=== PATIENT | male | born 1985 | race Caucasian/White ===

== ENCOUNTER 2019-02-20 16:36 | Emergency (ER) | payer BC ==
[2019-02-20 17:07] VITALS: BP 117/72; PULSE 73; RESP 18; TEMP 98.4
[2019-02-20] MEDS ORDERED: RABIES VACCINE (PCEC) 2.5 UNIT KIT IM ONE (17:15)
[2019-02-20] MEDS ORDERED: RABIES IMMUNE GLOB 300 UNIT/ML 5 ML VIAL IM ONE (17:15)
[2019-02-20] MEDS ORDERED: RABIES IMMUNE GLOB 300 UNIT/ML 1 ML VIAL IM ONE (17:30)
--- NOTE | 2019-02-20 18:05 | ED ---
General Adult HPI - General Chief complaint: Recheck/Abnormal Lab/Rx Stated complaint: Rabies exposure Time Seen by Provider: 02/20/19 16:45 Source: patient, RN notes reviewed, old records reviewed Mode of arrival: ambulatory Limitations: no limitations - History of Present Illness Initial comments: 33-year-old male patient presents to ED for rabies vaccine. Patient had a bat which was found in his home acting irregular, tested positive for rabies. This was one week ago. Patient did not have any known physical exposure to bat. Does not know of any bite wounds. Denies any complaints at this time. Systemic: Pt denies fatigue, fever/chills, rash. Pt denies weakness, night sweats, weight loss. Neuro: Pt denies headache, visual disturbances, syncope or pre-syncope. HEENT: Pt denies ocular discharge or irritation, otalgia, rhinorrhea, pharyngitis or notable lymphadenopathy. Cardiopulmonary: Pt denies chest pain, SOB, heart palpitations, dyspnea on exertion. Abdominal/GI: Pt denies abdominal pain, n/v/d. : Pt denies dysuria, burning w/ urination, frequency/urgency. Denies new onset urinary or bowel incontinence. MSK: Pt denies myalgia, loss of strength or function in extremities. Neuro: Pt denies new onset weakness, paresthesias. - Related Data Allergies Allergy/AdvReac Type Severity Reaction Status Date / Time No Known Allergies Allergy Verified 02/20/19 17:07 Review of Systems ROS Statement: Those systems with pertinent positive or pertinent negative responses have been documented in the HPI. ROS Other: All systems not noted in ROS Statement are negative. Past Medical History Additional Past Medical History / Comment(s): seasonal allergies, History of Any Multi-Drug Resistant Organisms: None Reported Past Surgical History: No Surgical Hx Reported Past Psychological History: Depression Smoking Status: Current every day smoker Past Alcohol Use History: Occasional Past Drug Use History: None Reported General Exam - General Exam Comments Initial Comments: Constitutional: NAD, AOX3, Pt has pleasant affect. HEENT: NC/AT, trachea midline, neck supple, no lymphadenopathy. Posterior pharynx non erythematous, without exudates. External ears appear normal, without discharge. Mucous membranes moist. Eyes PERRLA, EOM intact. There is no scleral icterus. No pallor noted. Cardiopulmonary: RRR, no murmurs, rubs or gallops, no JVD noted. Lungs CTAB in anterior and posterior santoro. No peripheral edema. Abdominal exam: Abdomen soft and non-distended. Abdomen non-tender to palpation in all 4 quadrants. Bowel sounds active in LLQ. No hepatosplenomegaly. No ecchymosis Neuro: CN II-XII grossly intact. No nuchal rigidity. No raccon eyes, no ren sign, no hemotympanum. No cervical spinal tenderness. MSK: No posterior calf tenderness bilaterally, homans sign negative bilaterally. Posterior tibialis and radial pulse +2 bilaterally. Sensation intact in upper and lower extremities. Full active ROM in upper and lower extremities, 5/5 stregnth. Limitations: no limitations Course Vital Signs 02/20/19 17:04 Temperature 98.4 F Pulse Rate 73 Respiratory 18 Rate Blood Pressure 117/72 O2 Sat by Pulse 98 Oximetry Medical Decision Making - Medical Decision Making 33-year-old male patient presents to ED for rabies vaccine. Patient had a bat which was found in his home acting irregular, tested positive for rabies. Patient did not have any known physical exposure to bat. Does not know of any bite wounds. Denies any complaints at this time. Pt VSS, afebrile. Physical exam displayed no acute pathology. Patient administered rabies vaccine, immunoglobulin. Will discharge with outpatient follow-up to have series of rabies vaccines completed. Case discussed with Dr. Wood. Disposition Clinical Impression: Encounter for prophylactic rabies immune globin, Rabies, need for prophylactic vaccination against Disposition: HOME SELF-CARE Condition: Stable Instructions (If sedation given, give patient instructions): Rabies Vaccine (By injection), Rabies Immune Globulin (By injection), Rabies Vaccine (ED), Rabies (ED) Additional Instructions: Patient to adhere to previously discussed treatment plan and will take medication(s) as directed. Patient to follow up with PCP in 1-2 days. Return to ER if condition worsens in anyway. Code to [facility] on days 3, 7, 14 and after administration of initial vaccines for completion of rabies vaccine. 02/23/19 02/27/19 03/06/19 Is patient prescribed a controlled substance at d/c from ED?: No Referrals: Kaylee De Jesus MD [Primary Care Provider] - 1-2 days
== END 2019-02-20 18:20 | disposition home or self-care (01) ==
LOC: EC 16:36
DX: Z29.14 Encounter for prophylactic rabies immune globulin (principal); Z20.3 Contact with and (suspected) exposure to rabies; F17.200 Nicotine dependence, unspecified, uncomplicated
CPT/HCPCS: 90375; 90471; 90675; 96372; 99284

== ENCOUNTER 2019-09-15 19:17 | Emergency (ER) | payer BC ==
[2019-09-15] MEDS ORDERED: LORazepam 2 MG/ML INJ IV STA (19:30)
--- NOTE | 2019-09-15 19:31 | ED ---
General Adult HPI - General Stated complaint: anxiety Time Seen by Provider: 09/15/19 19:20 Source: RN notes reviewed, old records reviewed - History of Present Illness Initial comments: 33-year-old male patient with no pertinent past HISTORY presents to ED for evaluation of chest pain and anxiety. Patient reports that he does not normally smoke marijuana. States that he smokes marijuana approximately 45 minutes ago and began experiencing chest pain, severe anxiety. Reports that it feels similar to anxiety and panic attacks states that in the past. States that the pain and discomfort is generalized in his anterior chest wall. Since that upon evaluation is improved from before and is mild at this point. Reports previously been on medications for anxiety but no longer. Denies using any other drugs including cocaine. Was administered aspirin by EMS. Systemic: Pt denies fatigue, fever/chills, rash. Pt denies weakness, night sweats, weight loss. Neuro: Pt denies headache, visual disturbances, syncope or pre-syncope. HEENT: Pt denies ocular discharge or irritation, otalgia, rhinorrhea, pharyngitis or notable lymphadenopathy. Cardiopulmonary: Pt denies SOB, heart palpitations, dyspnea on exertion. Abdominal/GI: Pt denies abdominal pain, n/v/d. : Pt denies dysuria, burning w/ urination, frequency/urgency. Denies new onset urinary or bowel incontinence. MSK: Pt denies myalgia, loss of strength or function in extremities. Neuro: Pt denies new onset weakness, paresthesias. - Related Data Home Medications Medication Instructions Recorded Confirmed No Known Home Medications 02/20/19 09/15/19 Allergies Allergy/AdvReac Type Severity Reaction Status Date / Time No Known Allergies Allergy Verified 09/15/19 20:55 Review of Systems ROS Statement: Those systems with pertinent positive or pertinent negative responses have been documented in the HPI. ROS Other: All systems not noted in ROS Statement are negative. Past Medical History Additional Past Medical History / Comment(s): seasonal allergies, History of Any Multi-Drug Resistant Organisms: None Reported Past Surgical History: No Surgical Hx Reported Smoking Status: Current every day smoker General Exam - General Exam Comments Initial Comments: Constitutional: NAD, AOX3, Pt has pleasant affect. HEENT: NC/AT, trachea midline, neck supple, no lymphadenopathy. Posterior pharynx non erythematous, without exudates. External ears appear normal, without discharge. Mucous membranes moist. Eyes PERRLA, EOM intact. There is no scleral icterus. No pallor noted. Cardiopulmonary: RRR, no murmurs, rubs or gallops, no JVD noted. Lungs CTAB in anterior and posterior santoro. No peripheral edema. Abdominal exam: Abdomen soft and non-distended. Abdomen non-tender to palpation in all 4 quadrants. Bowel sounds active in LLQ. No hepatosplenomegaly. No ecchymosis Neuro: CN II-XII grossly intact. No nuchal rigidity. No raccon eyes, no ren sign, no hemotympanum. No cervical spinal tenderness. MSK: No posterior calf tenderness bilaterally, homans sign negative bilaterally. Posterior tibialis and radial pulse +2 bilaterally. Sensation intact in upper and lower extremities. Full active ROM in upper and lower extremities, 5/5 stregnth. Course Vital Signs 09/15/19 09/15/19 19:24 20:49 Temperature 97.9 F Pulse Rate 111 H 106 H Respiratory 20 20 Rate Blood Pressure 137/89 116/85 O2 Sat by Pulse 100 97 Oximetry Medical Decision Making - Medical Decision Making 33-year-old male patient with no pertinent past HISTORY presents to ED for evaluation of chest pain and anxiety. Patient reports that he does not normally smoke marijuana. States that he smokes marijuana approximately 45 minutes ago and began experiencing chest pain, severe anxiety. Reports that it feels similar to anxiety and panic attacks states that in the past. States that the pain and discomfort is generalized in his anterior chest wall. Since that upon evaluation is improved from before and is mild at this point. Reports previously been on medications for anxiety but no longer. Denies using any other drugs including cocaine. Was administered aspirin by EMS. Patient will then displayed very mild tachycardia. Physical examthe pathology. Patient was administered anxiolytic. Chest x-ray revealed no acute process. EKG is nonischemic. Upon reevaluation patient is asymptomatic states he is feeling much improved. Patient will be discharged to follow-up with PCP and will return to ED if condition worsens. Patient advised to refrain from future marijuana or recreational drug use. Case discussed with Dr. Ruelas. - Lab Data Lab Results 09/15/19 Range/Units 20:38 Urine Opiates Screen Not Detected (NotDetected) Ur Oxycodone Screen Not Detected (NotDetected) Urine Methadone Screen Not Detected (NotDetected) Ur Propoxyphene Screen Not Detected (NotDetected) Ur Barbiturates Screen Not Detected (NotDetected) U Tricyclic Antidepress Not Detected (NotDetected) Ur Phencyclidine Scrn Not Detected (NotDetected) Ur Amphetamines Screen Not Detected (NotDetected) U Methamphetamines Scrn Not Detected (NotDetected) U Benzodiazepines Scrn Not Detected (NotDetected) Urine Cocaine Screen Not Detected (NotDetected) U Marijuana (THC) Screen Not Detected (NotDetected) - EKG Data -: EKG Interpreted by Me (and Dr. Ruelas) EKG Comments: Ventricular rate 101, painful 146, QRS 88, QT/QTC 334/433. Sinus tachycardia, possible left atrial enlargement, rightward axis, no concern for acute ischemia this time. Disposition Clinical Impression: Anxiety, Cannabis use, unspecified with anxiety disorder Disposition: HOME SELF-CARE Condition: Stable Instructions (If sedation given, give patient instructions): Anxiety (ED) Additional Instructions: Follow-up with primary care provider tomorrow. Refrain from future marijuana or recreational drug use. Return to ER if condition worsens. Is patient prescribed a controlled substance at d/c from ED?: No Referrals: Kaylee De Jesus MD [Primary Care Provider] - 1-2 days
--- NOTE | 2019-09-15 19:56 | XR ---
EXAMINATION TYPE: XR chest 2V DATE OF EXAM: 09/15/2019 COMPARISON: NONE HISTORY: Chest pain TECHNIQUE: Frontal and lateral views of the chest are obtained. FINDINGS: There is no focal air space opacity. No evidence for pneumothorax. No pleural effusion. The cardiac silhouette size is within normal limits. The osseous structures are grossly intact. IMPRESSION: 1. No acute cardiopulmonary process.
[2019-09-15 21:01] LABS: Amphetamine Screen,Urine Not Detected (NotDetected); Barbiturate Screen,Urine Not Detected (NotDetected); Benzodiazepines Screen,Urine Not Detected (NotDetected); Cocaine Screen,Urine Not Detected (NotDetected); Methadone Screen, Urine Not Detected (NotDetected); Opiate Screen,Urine Not Detected (NotDetected); Oxycodone Screen, Urine Not Detected (NotDetected); Phencyclidine Screen,Urine Not Detected (NotDetected); Tricyclic Antidepressant,Urine Not Detected (NotDetected); Urn Cannabinoid Scrn Not Detected (NotDetected)
[2019-09-15 22:20] VITALS: BP 119/87; PULSE 87; RESP 16; TEMP 98.2
== END 2019-09-15 22:15 | disposition home or self-care (01) ==
LOC: EC 19:17
DX: F41.9 Anxiety disorder, unspecified (principal); F12.90 Cannabis use, unspecified, uncomplicated; F17.200 Nicotine dependence, unspecified, uncomplicated
CPT/HCPCS: 71046; 80306; 93005; 99285